=== PATIENT | male | born 1935 | race Caucasian/White ===

== ENCOUNTER → 2019-07-07 | Outpatient (CLI) | payer OTHER | LOC: LAB FS 16:08 | PROVIDERS: ATTEND Family Medicine | DX: D68.2 Hereditary deficiency of other clotting factors (principal); Z79.01 Long term (current) use of anticoagulants; Z86.718 Personal history of other venous thrombosis and embolism ==

== ENCOUNTER → 2019-07-08 | Outpatient (CLI) | payer OTHER ==
[2019-07-08 15:44] LABS: PROTHROMBIN TIME PATIENT 40.5 SEC (12.2-14.7)
== END ==
LOC: LAB FS 15:25
PROVIDERS: ATTEND Family Medicine
DX: D68.2 Hereditary deficiency of other clotting factors (principal); Z79.01 Long term (current) use of anticoagulants; Z86.718 Personal history of other venous thrombosis and embolism
CPT/HCPCS: 36415; 85610

== ENCOUNTER → 2019-07-14 | Outpatient (CLI) | payer OTHER ==
[2019-07-14 15:40] LABS: PROTHROMBIN TIME PATIENT 27.2 SEC (12.2-14.7)
[2019-07-14 15:41] LABS: INR 2.4 (0.8-1.4)
== END ==
LOC: IHC 14:36
PROVIDERS: ATTEND Family Medicine
DX: I25.10 Atherosclerotic heart disease of native coronary artery without angina pectoris (principal); Z79.01 Long term (current) use of anticoagulants
CPT/HCPCS: 36415; 85610

== ENCOUNTER → 2019-07-21 | Outpatient (CLI) | payer OTHER ==
[2019-07-21 16:19] LABS: INR 1.7 (0.8-1.4); PROTHROMBIN TIME PATIENT 20.3 SEC (12.2-14.7)
== END ==
LOC: LAB FS 15:47
PROVIDERS: ATTEND Family Medicine
DX: D68.2 Hereditary deficiency of other clotting factors (principal); Z86.718 Personal history of other venous thrombosis and embolism; Z79.01 Long term (current) use of anticoagulants
CPT/HCPCS: 36415; 85610